=== PATIENT | female | born 1965 | race African-American/Black ===

== ENCOUNTER 2019-03-13 12:13 | Emergency (ER) | payer SELFPAY ==
[~2019-03-13] VITALS: Ht 167.6 cm; Wt 91.0 kg
[2019-03-13] MEDS ORDERED: MORPHINE SULFATE 4 MG/ML CPJ (NOT FOR IM USE) IV STA (17:50)
[2019-03-13] MEDS ORDERED: SODIUM CHLORIDE 0.9% 1,000 ML IV ONE (17:50)
[2019-03-13] MEDS ORDERED: ONDANSETRON HCL 4MG/2ML INJ IV STA (17:50)
[2019-03-13 18:21] LABS: CLARITY URINE CLOUDY (CLEAR); COLOR URINE YELLOW (YELLOW); KETONES URINE 1+ (NEGATIVE); LEUKOCYTE ESTERASE URINE 1+ (NEGATIVE); NITRITE URINE NEGATIVE (NEGATIVE); OCCULT BLOOD URINE 3+ (NEGATIVE); PROTEIN URINE TRACE (NEGATIVE); SPECIFIC GRAVITY URINE 1.022 (1.005-1.030)
[2019-03-13 18:22] LABS: BASOPHILS % 1.3 % (0.0-2.0); EOSINOPHILS % 1.1 % (0.0-5.0); HEMATOCRIT. 39.6 % (36.0-48.0); HEMOGLOBIN. 13.1 g/dL (12.0-16.0); LYMPHOCYTES % 38.6 % (20.0-50.0); MEAN CORPUSCULAR HEMOGLOBIN 30.2 pg (28.0-32.0); MEAN PLATELET VOLUME 8.5 fl (7.4-10.4); PLATELET 315 x1000/uL (130-400); RED BLOOD CELL COUNT 4.35 mill/uL (4.2-5.4); RED CELL DISTRIBUTION WIDTH 13.6 % (11.6-14.6)
[2019-03-13 18:26] LABS: CHLORIDE 102 mEq/L (98-107)
[2019-03-13 18:30] LABS: ETHANOL BLOOD < 10 mg/dL
[2019-03-13 18:31] LABS: HCG SCREEN NEGATIVE
[2019-03-13 18:36] LABS: CANNABINOID URINE SCREEN PRESUMTIVE POSITIVE (NEGATIVE); METHADONE URINE SCREEN NEGATIVE (NEGATIVE); OPIATES URINE SCREEN NEGATIVE (NEGATIVE); PHENCYCLIDINE URINE SCREEN NEGATIVE (NEGATIVE)
[2019-03-13 18:37] LABS: *AMPHETAMINES SCREEN URINE NEGATIVE (NEGATIVE); *BARBITURATES SCREEN URINE NEGATIVE (NEGATIVE); *BENZODIAZEPINES SCREEN URINE NEGATIVE (NEGATIVE); *COCAINE SCREEN URINE NEGATIVE (NEGATIVE)
[2019-03-13] MEDS ORDERED: KETOROLAC 30MG/ML VIAL IV ONE (19:15)
[2019-03-13 21:10] VITALS: BP 128/76
== END 2019-03-13 22:07 | disposition home or self-care (01) ==
LOC: ER 14:00
DX: N30.90 Cystitis, unspecified without hematuria (principal); D25.9 Leiomyoma of uterus, unspecified; I10 Essential (primary) hypertension
CPT/HCPCS: 36415; 74176; 80053; 80305; 80320; 81003; 83690; 83880; 84484; 84703; 85025; 96361; 96374; 96375; 99284; J1885; J2270; J2405; J7030; G0480

== ENCOUNTER 2022-05-27 12:37 | Emergency (ER) | payer MEDICAID ==
[~2022-05-27] VITALS: Ht 167.6 cm; Wt 87.0 kg
[2022-05-27 12:43] VITALS: BP 143/81
== END 2022-05-27 21:32 | disposition left against medical advice (07) ==
LOC: ER 13:49
DX: Z53.21 Procedure and treatment not carried out due to patient leaving prior to being seen by health care provider (principal)